=== PATIENT | female | born 1980 | race Caucasian/White ===

== ENCOUNTER 2020-06-01 06:50 | Emergency (ER) | payer SELFPAY ==
[~2020-06-01] VITALS: Ht 177.8 cm; Wt 87.4 kg
--- NOTE | 2020-06-01 07:39 | NUR ---
LOGGING CONTRACTOR: PT TO ROOM FROM EMIGDIO ROBERSON. PT PROVIDED WITH URINE CUP, TO BR TO ATTEMPT TO PROVIDE URINE SPECIMAN.
[2020-06-01] MEDS ORDERED: FAMOTIDINE 20 MG/2 ML IV ONE (08:30)
[2020-06-01] MEDS ORDERED: MORPHINE SULFATE 4 MG/ML, 1ML IVPush PRN (08:30)
[2020-06-01] MEDS ORDERED: ONDANSETRON 2MG/ML, 2ML IVPush ONE (08:30)
[2020-06-01] MEDS ORDERED: SODIUM CHLORIDE 0.9% 1,000ML IVBOLUS ONE (08:30)
[2020-06-01 08:38] LABS: BASOPHILS % (AUTO) 1 % (0-1); EOSINOPHILS % (AUTO) 5 % (1-7); LYMPHOCYTES % (AUTO) 19 % (22-44); MEAN CORPUSCULAR HEMOGLOBIN 28.8 pg (27.0-34.8); MEAN CORPUSCULAR HGB CONC 32.9 g/dL (32.4-35.8); MONOCYTES % (AUTO) 5 % (2-9); NEUTROPHILS % (AUTO) 69 % (42-75); PLATELET COUNT 202 x10^3/uL (130-400); RED BLOOD COUNT 5.09 x10^6/uL (3.82-5.3); RED CELL DISTRIBUTION WIDTH 13.8 % (9.6-15.2)
[2020-06-01 08:46] LABS: MD NO
[2020-06-01 08:50] LABS: ALANINE AMINOTRANSFERASE 21 U/L (12-78); ALBUMIN 3.3 g/dL (3.4-5.0); ANION GAP 8 mmol/L (5-15); CHLORIDE 111 mmol/L (98-107); CREATININE 0.68 mg/dL (0.55-1.02)
[2020-06-01] MEDS ORDERED: FAMOTIDINE 20 MG/2 ML ONE (08:52)
[2020-06-01] MEDS ORDERED: MORPHINE SULFATE 4 MG/ML, 1ML ONE (08:52)
[2020-06-01] MEDS ORDERED: ONDANSETRON 2MG/ML, 2ML ONE (08:52)
[2020-06-01 08:54] LABS: ALKALINE PHOSPHATASE 65 U/L (45-117); BILIRUBIN,TOTAL 0.3 mg/dL (0.2-1.0); TOTAL PROTEIN 6.7 g/dL (6.4-8.2)
--- NOTE | 2020-06-01 09:10 | NUR ---
PT AMBULATORY TO ROOM 37 W/ C/O LUQ ABD PAIN STARTED THIS AM SHARPER THAN NORMAL. LUQ DULL PAIN X FEW WEEKS. PT STATES HER PAIN INCREASED THIS AM AND SHE DECIDED TO COME TO ED. PT ALSO C/O N/V AND BOUTS OF DIARRHEA YESTERDAY NONE TODAY. PT RESTING ON GURNEY. NADN. MONITORS APPLIED. VSS.
[2020-06-01 09:32] LABS: MICROSCOPIC NOT IND
[2020-06-01 10:08] VITALS: BP 113/58
--- NOTE | 2020-06-01 10:13 | NUR ---
PT RESTING ON GURNEY. NADN. RANGEL.
--- NOTE | 2020-06-01 10:17 | NUR ---
PT CHART REVIEWED AND PLACED FOR RECHECK.
== END 2020-06-01 10:52 | disposition home or self-care (01) ==
LOC: ED 09:51
DX: R10.12 Left upper quadrant pain (principal); R11.2 Nausea with vomiting, unspecified; R35.0 Frequency of micturition
CPT/HCPCS: 36415; 71045; 74176; 80053; 81003; 83690; 84703; 85025; 96361; 96374; 96375; 99285; J2270; J2405; J3490; J7030

== ENCOUNTER 2020-06-20 22:06 | Emergency (ER) | payer SELFPAY ==
[~2020-06-20] VITALS: Ht 177.8 cm; Wt 88.0 kg
[2020-06-20 22:09] VITALS: BP 119/88
[2020-06-20] MEDS ORDERED: SODIUM CHLORIDE 0.9% 1,000ML IVBOLUS ONE (23:00)
[2020-06-20] MEDS ORDERED: ONDANSETRON 2MG/ML, 2ML IVPush ONE (23:00)
[2020-06-20] MEDS ORDERED: SODIUM CHLORIDE FLUSH 10ML SYR IVF ONE (23:00)
[2020-06-20] MEDS ORDERED: ONDANSETRON 2MG/ML, 2ML ONE (23:12)
[2020-06-20 23:13] LABS: ALANINE AMINOTRANSFERASE 22 U/L (12-78); ALBUMIN 2.9 g/dL (3.4-5.0); ANION GAP 3 mmol/L (5-15); CALCIUM 8.2 mg/dL (8.5-10.1); CHLORIDE 110 mmol/L (98-107)
[2020-06-20 23:16] LABS: BASOPHILS % (AUTO) 1 % (0-1); EOSINOPHILS % (AUTO) 8 % (1-7); LYMPHOCYTES % (AUTO) 22 % (22-44); MEAN CORPUSCULAR HEMOGLOBIN 28.6 pg (27.0-34.8); MEAN CORPUSCULAR HGB CONC 32.6 g/dL (32.4-35.8); MEAN PLATELET VOLUME 8.8 fL (7.4-10.4); MONOCYTES % (AUTO) 6 % (2-9); NEUTROPHILS % (AUTO) 63 % (42-75); PLATELET COUNT 236 x10^3/uL (130-400); RED BLOOD COUNT 4.89 x10^6/uL (3.82-5.3); RED CELL DISTRIBUTION WIDTH 13.9 % (9.6-15.2)
[2020-06-20 23:18] LABS: ALKALINE PHOSPHATASE 82 U/L (45-117); BILIRUBIN,TOTAL 0.4 mg/dL (0.2-1.0); CREATININE 0.97 mg/dL (0.55-1.02); MD NO
--- NOTE | 2020-06-21 00:06 | NUR ---
PT PROVIDED WITH EXTRA BLANKETS PER REQUEST. STATES GOOD RELIEF WITH ZOFRAN AT THIS TIME. DENIES ANY FURTHER NEEDS OR CONCERNS AT THIS TIME. CALL LIGHT IN REACH.
== END 2020-06-21 01:53 | disposition home or self-care (01) ==
LOC: ED 23:57
DX: R11.2 Nausea with vomiting, unspecified (principal); R19.7 Diarrhea, unspecified; J02.9 Acute pharyngitis, unspecified; Z20.828 Contact with and (suspected) exposure to other viral communicable diseases; R06.02 Shortness of breath; R07.9 Chest pain, unspecified; R94.31 Abnormal electrocardiogram [ECG] [EKG]
CPT/HCPCS: 36415; 71045; 80053; 84703; 85025; 87081; 87635; 87880; 93005; 96361; 96374; 99285; J2405; J7030; 87147

== ENCOUNTER 2020-11-29 10:44 | Emergency (ER) | payer SELFPAY ==
[~2020-11-29] VITALS: Ht 177.8 cm; Wt 92.6 kg
--- NOTE | 2020-11-29 11:33 | NUR ---
PT C/O INNER THIGH CYST SINCE MAY. PT ALSO HAS LEFT FLANK PAIN X 2 WEEKS, DENIES N/V, DYSURIA. PT ALSI REQUESTING A REFILL ON HER THYROID MEDICATION SHE DOESN'T HAVE INSURANCE AT THIS TIME.
[2020-11-29 12:41] VITALS: BP 116/82
--- NOTE | 2020-11-29 12:41 | NUR ---
PT REC'VD DISCHARGE INSTRUCTIONS AND EDUCAITON. PT HAD NO FURTHER QUESTIONS. PT AMBULATED TO DC AREA, STEADY GAIT.
== END 2020-11-29 12:55 | disposition home or self-care (01) ==
LOC: ED 12:48
DX: L03.115 Cellulitis of right lower limb (principal); H91.91 Unspecified hearing loss, right ear
CPT/HCPCS: 99283